=== PATIENT | female | born 1985 | race Caucasian/White ===

== ENCOUNTER 2016-06-16 14:58 | Emergency (ER) | payer OTHER ==
[~2016-06-16] VITALS: Ht 162.6 cm; Wt 81.6 kg
[2016-06-16 15:05] VITALS: BP 127/92
--- NOTE | 2016-06-16 15:15 | NUR ---
PT AMBULATED TO BED 7.
--- NOTE | 2016-06-16 15:20 | NUR ---
PATIENT PRESENTS TO ED WITH C/O CHEST PAIN . PT STATES THE PAIN IS LOCATED IN HER LEFT UPPER CHEST AND RADIATES DOWN LEFT ARM. PT ALSO STATES SHE HAS HX OF SEIZURES A CHILD, BUT HAS NOT HAD A SEIZURE IN MANY YEARS AND IS NOT ON ANY MEDICATION FOR SEIZURES . DENIES N/V/D; SKIN IS PINK/WARM/DRY; AAOX4 WITH EVEN AND STEADY GAIT; LUNGS CLEAR BL; HR EVEN AND REGULAR; PT DENIES ANY FEVER, CP, SOB, OR COUGH AT THIS TIME; PATIENT STATES PAIN OF 8/10 AT THIS TIME; VSS; PATIENT POSITIONED FOR COMFORT; HOB ELEVATED; BEDRAILS UP X2; BED DOWN. ER MD MADE AWARE OF PT STATUS.
[2016-06-16 17:11] VITALS: BP 134/77
== END 2016-06-16 17:11 | disposition home or self-care (01) ==
LOC: MED 14:58
DX: R07.89 Other chest pain (principal)

== ENCOUNTER 2016-07-27 23:03 | Emergency (ER) | payer OTHER ==
[~2016-07-27] VITALS: Ht 162.6 cm; Wt 75.3 kg
[2016-07-27 23:05] VITALS: BP 135/75
--- NOTE | 2016-07-27 23:55 | NUR ---
PT TAKEN TO BED 3
--- NOTE | 2016-07-28 00:01 | NUR ---
PATIENT PRESENTS TO ED WITH C/O CHEST PAIN . PT DENIES N/V/D; SKIN IS PINK/WARM/DRY; AAOX4 WITH EVEN AND STEADY GAIT; LUNGS CLEAR BL; HR EVEN AND REGULAR; PT DENIES ANY FEVER, SOB, OR COUGH AT THIS TIME; PATIENT STATES PAIN OF 10/10 AT THIS TIME; VSS; PATIENT POSITIONED FOR COMFORT; HOB ELEVATED; BEDRAILS UP X2; BED DOWN. ER MD MADE AWARE OF PT STATUS.
--- NOTE | 2016-07-28 00:33 | NUR ---
Dr. Souza evaluating patient at bedside.
[2016-07-28 00:55] VITALS: BP 135/83
--- NOTE | 2016-07-28 00:55 | NUR ---
Patient discharged with v/s stable. Written and verbal after care instructions given and explained. Patient alert, oriented and verbalized understanding of instructions. Ambulatory with steady gait. All questions addressed prior to discharge. ID band removed. Patient advised to follow up with PMD. Rx of MOTRIN 800MG, PREDNISONE 20MG given. Patient educated on indication of medication including possible reaction and side effects. Opportunity to ask questions provided and answered.
== END 2016-07-28 00:55 | disposition home or self-care (01) ==
LOC: MED 23:03
DX: R07.89 Other chest pain (principal); R05 Cough
CPT/HCPCS: 93005; 99283